=== PATIENT | female | born 1980 | race Caucasian/White ===

== ENCOUNTER 2022-07-23 13:47 | Emergency (ER) | payer OTHER, SELFPAY ==
[2022-07-23 13:54] VITALS: BP 122/79; PULSE 113; RESP 18; TEMP 36.3; O2SAT 100; BMI 15.5
--- NOTE | 2022-07-23 14:09 | ED_ITS ---
HPI - Eye Problem General: Chief complaint: Eye Problems Stated complaint: left eye swollen shut Time Seen by Provider: 07/23/22 14:08 Source: patient Mode of arrival: ambulatory Limitations: no limitations History of Present Illness: Patient is a 41-year-old female presents to ED today for evaluation of an abscess near her left eye. Patient states several days ago she began noticing a scab near the inner portion of her left eyebrow. She states since then the area has continued to enlarge and become red and painful. Patient reportedly was seen on a telehealth visit and told to come to the ED. She denies any painful eye movements or visual changes. chief complaint: other (swelling surrounding L orbit) Onset (ago): day(s) Onset description: gradual Duration: constant Location: left eye Place: home Mechanism: other (infected scab/sore) Severity: moderate Associated symptoms: Denies fever(s) Treatments Prior to Arrival: none Related Data: Patient tetanus UTD: Yes Review of Systems Const: Denies: fever(s), chills, body aches, fatigue or malaise Eyes: Reports: other (abscess to L superior orbit); Denies: change in vision, blurry vision, blind spots, photophobia, eye discomfort, eye discharge or eye redness Physical Exam Const: COMMON NORMALS: no acute distress, patient oriented x3, no limitations and alert GENERAL APPEARANCE: cooperative ORIENTATION/CONSCIOUSNESS: Yes awake, Yes oriented to person, Yes oriented to place and Yes oriented to time HENMT: COMMON NORMALS: normocephalic and atraumatic HEAD & SCALP: normal to inspection, normocephalic and atraumatic Eye: COMMON NORMALS: Equal, round and reactive pupils present, EOMs intact bilaterally (non-painful) and conjunctivae normal GENERAL EYE: appearance normal, both eyes and all related structures and normal light reflex VISUAL ACUITY: Yes acuity normal ALIGNMENT: Yes alignment normal PERIORBITAL: periorbital findings abnormal (abscess L superior orbital rim) positive left CONJUNCTIVA: Yes conjunctivae normal SCLERA: sclerae normal CORNEA: Yes corneas normal PUPIL: Yes Equal, round and reactive pupils present DIRECT OPHTHALMOSCOPY: Yes normal light reflex EYE IMAGES: 1. abscess formation; mild fluctuance underlying scab/sore; no active drainage noted Neck/C-Spine: COMMON NORMALS: full ROM, no lymphadenopathy and no meningeal signs Neuro: COMMON NORMALS: patient oriented x3 SENSORIUM/ORIENTATION: Yes alert, Yes oriented to person, Yes oriented to place and Yes oriented to time MENINGEAL SIGNS: Yes no meningeal signs Procedures Abscess I/D Site: face Side (if applicable): left Local Anesthetic: lidocaine 1% Amount of anesthesia used (mL): 1.0 Technique: other (scab removed with blunt needle) Amount of fluid expressed (mL): 1.5 Packing used?: plain Course Vital Signs: Vital signs: Vital Signs Temperature 97.4 F L 07/23/22 13:54 Pulse Rate 113 H 07/23/22 13:54 Respiratory Rate 18 07/23/22 13:54 Blood Pressure 122/79 07/23/22 13:54 Pulse Oximetry 100 07/23/22 13:54 Oxygen Delivery Me thod Room Air 07/23/22 13:54 MDM - Eye Problem Medical Decision Making Patient is a 41-year-old female here with an abscess near her left superior orbital rim. There does not seem to be any orbital involvement and her globe appears completely normal. She has full painless EOMs. CT scan of her face confirming abscess and no postseptal extension. Case discussed with Dr. Beaver who feels we can safely unroofed blister/scab to help facilitate drainage. This was completed as documented. She did have small abscess cavity that was packed with a small amount of packing. Patient was given IM antibiotics prior to discharge. She will be placed on oral antibiotics at home. She can remove the packing in 72 hours. Strict return to ED precautions. Discussed follow-up with specialty such as ENT/ophthalmology however patient declined stating I do not like doctors . States she will return to the ED for any worsening symptoms. Lab Data 07/23/22 15:06 07/23/22 15:[address] 07/23/22 14:31 IMPRESSION: 1. Soft tissue swelling or fullness in the left superior nasal and periorbital soft tissues anteriorly and medially with ill-defined contrast enhancement and with low-density area of approximally 1.7 x 1.4 x 0.8 cm suggestive of small abscess with surrounding inflammation or cellulitis. No findings to indicate post septal extension. 2. Mucosal sinus disease of the right maxillary sinus. Laboratory Results WBC 15.7 10^3/uL (4.0-10.0) H 07/23/22 15:06 RBC 5.01 10^6/uL (4.1-5.3) 07/23/22 15:06 Hgb 14.0 g/dL (11.5-15.3) 07/23/22 15:06 Hct 43.7 % (37.0-47.0) 07/23/22 15:06 MCV 87.2 fl (81-99) 07/23/22 15:06 MCH 27.9 pg (28.0-34.0) L 07/23/22 15:06 MCHC 32.0 g/dL (30.0-36.0) 07/23/22 15:06 RDW 12.4 % (12.1-15.1) 07/23/22 15:06 Plt Count 314 10^3/cmm (130-400) 07/23/22 15:06 MPV 10.7 fL (7.4-10.4) H 07/23/22 15:06 Neut % (Auto) 82.1 % 07/23/22 15:06 Lymph % (Auto) 11.1 % 07/23/22 15:06 [place] % (Auto) 5.4 % 07/23/22 15:06 Eos % (Auto) 0.8 % 07/23/22 15:06 Baso % (Auto) 0.3 % 07/23/22 15:06 Neut # (Auto) 12.89 10^3/uL (1.8-7.7) H 07/23/22 15:06 Lymph # (Auto) 1.8 10^3/uL (0.8-4.8) 07/23/22 15:06 [place] # (Auto) 0.9 10^3/uL (0.2-0.9) 07/23/22 15:06 Eos # (Auto) 0.1 10^3/uL (0.0-0.8) 07/23/22 15:06 Baso # (Auto) 0.0 10^3/uL (0.0-0.1) 07/23/22 15:06 Nucleated RBC % (auto) 0 % 07/23/22 15:06 Nucleated RBCs # 0.0 /100WBC 07/23/22 15:06 Sodium 135 mmol/L (136-145) L 07/23/22 15:06 Potassium 4.3 mmol/L (3.5-5.1) 07/23/22 15:06 Chloride 98 mmol/L (98-107) 07/23/22 15:06 Carbon Dioxide 27 mmol/L (22-29) 07/23/22 15:06 Anion Gap 14.3 (5-19) 07/23/22 15:06 BUN 7 mg/dL (6-20) 07/23/22 15:06 Creatinine 0.7 mg/dL (0.5-0.9) 07/23/22 15:06 GFR Calculation 93.2 mL/min (90-130) 07/23/22 15:06 Glucose 101 mg/dL (65-115) 07/23/22 15:06 Calculated Osmolality 278 mOsm/kg (285-295) L 07/23/22 15:06 Lactic Acid 1.0 mmol/L (0.5-2.2) 07/23/22 15:06 Calcium 9.6 mg/dL (8.5-10.5) 07/23/22 15:06 Total Bilirubin 0.2 mg/dL (0.15-1.2) 07/23/22 15:06 AST 14 U/L (0-32) 07/23/22 15:06 ALT 11 U/L (0-33) 07/23/22 15:06 Alkaline Phosphatase 138 U/L (35-105) H 07/23/22 15:06 C-Reactive Protein 30.5 mg/L (0.0-4.9) H 07/23/22 15:06 Total Protein 7.9 g/dL (6.6-8.7) 07/23/22 15:06 Albumin 4.2 g/dL (3.5-5.2) 07/23/22 15:06 Globulin 3.7 g/dL (1.3-4.6) 07/23/22 15:06 Discharge Plan Discharge Patient Disposition: Home Clinical Impression: Abscess of left orbit Condition: Stable Prescriptions: New Bactrim DS 800-160 mg tablet 2 tab PO BID 7 Days Qty: 28 0RF Discharge Orders: Discharge ED (Routine); Ordered 07/23/22 Ordered By: Minal Concepcion Referrals: Benjamin Carter, [facility] [Primary Care Provider] - Patient Instructions: Abscess (ED), Abscess Follow-up (ED), Abscess Incision and Drainage (DC) Activity Restrictions/Additional Instructions: Please monitor your abscess for worsening symptoms such as worsening redness, swelling, increased drainage, red streaking, or fevers. If you have been on antibiotics for over 48 hours and continue to worsen you need to immediately return to the emergency department for re-evaluation. Remove packing in 72 hours. Fill antibiotis and start immediately. Coding Level of Care Code ED Hand Stonecutter for Susy Cisneros
--- NOTE | 2022-07-23 14:31 | CTR_ITS ---
PROCEDURE INFORMATION: Exam: CT Maxillofacial With Contrast Exam date and time: 07/23/2022 4:07 PM Age: 41 years old Clinical indication: Eye pain; Left; Additional info: L superior orbital abscess TECHNIQUE: Imaging protocol: Computed tomography of the face with contrast. Radiation optimization: All CT scans at this facility use at least one of these dose optimization techniques: automated exposure control; mA and/or kV adjustment per patient size (includes targeted exams where dose is matched to clinical indication); or iterative reconstruction. Contrast material: OMNI 350; Contrast volume: 100 ml; Contrast route: INTRAVENOUS (IV); REPORTING DATA: Count of CT and Cardiac NM exams in prior 12 months: This patient has received 0 known CTs and 0 known cardiac nuclear medicine studies in the 12 months prior to the current study. COMPARISON: No relevant prior studies available. RADIATION DOSE METRICS: Total DLP (mGy-cm): 612.48 FINDINGS: Orbital cavities: See Soft tissues finding. Bones/joints: No fracture or other acute osseous abnormality is seen. Paranasal sinuses: Extensive mucosal thickening of the right maxillary sinus and sinuses appear clear otherwise. No air-fluid levels are seen. Soft tissues: Increased soft tissue swelling or fullness is seen in the soft tissues in the periorbital region and superior paranasal region on the left with ill-defined contrast enhancement. A low-density areas seen within this soft tissue fullness measuring 1.7 x 0.7 cm on sagittal exam, 1.4 x 0.8 cm on coronal exam and 1.4 x 0.8 cm on axial exam. Findings suggest inflammation with small abscess within the left periorbital and superior left paranasal soft tissue region. No findings to indicate retro-orbital or posterior conal extension. Globes of the orbits appear intact. Nasal soft tissues appear unremarkable. Remainder of the soft tissues appear unremarkable. Dental: Several dental fillings are seen with some associated streak artifact. CT/CT facial bones w con [id number] IMPRESSION: 1. Soft tissue swelling or fullness in the left superior nasal and periorbital soft tissues anteriorly and medially with ill-defined contrast enhancement and with low-density area of approximally 1.7 x 1.4 x 0.8 cm suggestive of small abscess with surrounding inflammation or cellulitis. No findings to indicate post septal extension. 2. Mucosal sinus disease of the right maxillary sinus.
[2022-07-23 15:18] LABS: Basophils % 0.3 %; Eosinophils # 0.1 10^3/uL (0.0-0.8); Eosinophils % 0.8 %; Hematocrit 43.7 % (37.0-47.0); Lymphocytes # 1.8 10^3/uL (0.8-4.8); Lymphocytes % 11.1 %; Mean Corpuscular Hemoglobin 27.9 pg (28.0-34.0); Mean Corpuscular Volume 87.2 fl (81-99); Mean Platelet Volume 10.7 fL (7.4-10.4); Monocytes # 0.9 10^3/uL (0.2-0.9); Monocytes % 5.4 %; Neutrophils # 12.89 10^3/uL (1.8-7.7); Neutrophils % 82.1 %; Nucleated Red Blood Cells % 0 %; Platelet Count 314 10^3/cmm (130-400); Red Blood Count 5.01 10^6/uL (4.1-5.3); Red Cell Distribution Width 12.4 % (12.1-15.1); White Blood Count 15.7 10^3/uL (4.0-10.0)
[2022-07-23 15:36] LABS: Alanine Aminotransferase 11 U/L (0-33); Albumin Level 4.2 g/dL (3.5-5.2); Alkaline Phosphatase 138 U/L (35-105); Anion Gap 14.3 (5-19); Aspartate Amino Transferase 14 U/L (0-32); Blood Urea Nitrogen 7 mg/dL (6-20); C Reactive Protein 30.5 mg/L (0.0-4.9); Calcium 9.6 mg/dL (8.5-10.5); Carbon Dioxide 27 mmol/L (22-29); Chloride 98 mmol/L (98-107); Globulin 3.7 g/dL (1.3-4.6); Glomerular Filtration Rate 93.2 mL/min (90-130); Glucose 101 mg/dL (65-115); Osmolality Calculated 278 mOsm/kg (285-295); Potassium 4.3 mmol/L (3.5-5.1); Sodium 135 mmol/L (136-145); Total Bilirubin 0.2 mg/dL (0.15-1.2); Total Protein 7.9 g/dL (6.6-8.7)
[2022-07-23] MEDS: iohexol 350 mg/mL 500 mL Btl (per mL) IV (16:18)
[2022-07-23] MEDS: ceFAZolin 1,000 MG in water for injection-sterile 2.5 ML 1 MG IM (17:13)
== END 2022-07-23 17:18 | disposition home or self-care (01) ==
PROVIDERS: Emergency Provider Physician Assistant; PCP Nurse Practitioner
DX: H05.012 Cellulitis of left orbit (principal)
CPT/HCPCS: 70487; 80053; 83605; 85025; 86140; 87070; 87075; 87077; 87186; 87205; 96372; 99285; J0690; Q9967